=== PATIENT | female | born 1995 | race African-American/Black ===

== ENCOUNTER 2023-06-14 20:01 | Inpatient (IN) | payer OTHER ==
--- NOTE | 2023-06-14 20:57 | ED ---
Psych HPI - General Source: patient, police, RN notes reviewed, old records reviewed Mode of arrival: ambulatory Limitations: no limitations - History of Present Illness MD Complaint: suicidal ideation, feels depressed, altered mental status (Acute psychosis) -: hour(s) Associated Psychiatric Symptoms: racing thoughts, delusions Quality: constant Improves With: none Context: significant life stressor Associated Symptoms: denies other symptoms Treatments Prior to Arrival: placed on mental health hold <Rod Bobby - Last Filed: 06/14/23 23:22> <Raghav Aguilar - Last Filed: 06/20/23 08:18> - General Chief Complaint: Psychiatric Symptoms Stated Complaint: Mental Health Time Seen by Provider: 06/14/23 20:35 - History of Present Illness Initial Comments: This is a 28-year-old female DF today. Patient presents today for evaluation of altered mental status is petition for evaluation by the police department for psychiatric evaluation (Rod Bobby) - Related Data Home Medications Medication Instructions Recorded Confirmed No Known Home Medications 06/14/23 06/14/23 Allergies Allergy/AdvReac Type Severity Reaction Status Date / Time No Known Allergies Allergy Verified 06/14/23 21:03 Review of Systems ROS Other: All systems not noted in ROS Statement are negative. <Rod Bobby - Last Filed: 06/14/23 23:22> ROS Other: All systems not noted in ROS Statement are negative. <Raghav Aguilar - Last Filed: 06/20/23 08:18> ROS Statement: Those systems with pertinent positive or pertinent negative responses have been documented in the HPI. Past Medical History Past Medical History: No Reported History Past Surgical History: No Surgical Hx Reported Smoking Status: Never smoker Past Alcohol Use History: None Reported Past Drug Use History: None Reported <Rod Bobby - Last Filed: 06/14/23 23:22> General Exam Limitations: no limitations General appearance: alert, in no apparent distress Head exam: Present: atraumatic, normocephalic, normal inspection Eye exam: Present: normal appearance, PERRL, EOMI. Absent: scleral icterus, conjunctival injection, periorbital swelling ENT exam: Present: normal exam, mucous membranes moist Neck exam: Present: normal inspection. Absent: tenderness, meningismus, lymphadenopathy Respiratory exam: Present: normal lung sounds bilaterally. Absent: respiratory distress, wheezes, rales, rhonchi, stridor Cardiovascular Exam: Present: regular rate, normal rhythm, normal heart sounds. Absent: systolic murmur, diastolic murmur, rubs, gallop, clicks GI/Abdominal exam: Present: soft, normal bowel sounds. Absent: distended, tenderness, guarding, rebound, rigid Extremities exam: Present: normal inspection, full ROM, normal capillary refill. Absent: tenderness, pedal edema, joint swelling, calf tenderness Back exam: Present: normal inspection Neurological exam: Present: alert, oriented X3, CN II-XII intact Psychiatric exam: Present: normal affect, normal mood Skin exam: Present: warm, dry, intact, normal color. Absent: rash <Rod Bobby - Last Filed: 06/14/23 23:22> Course <Rod Bobby - Last Filed: 06/14/23 23:22> Vital Signs 06/14/23 06/15/23 20:04 03:44 Temperature 99.2 F 98.3 F Pulse Rate 116 H 77 Respiratory 18 16 Rate Blood Pressure 123/72 115/70 O2 Sat by Pulse 100 100 Oximetry - Reevaluation(s) Reevaluation #1: 06/14/23 23:23 medical record is reviewed (Rod Bobby) Reevaluation #2: 06/14/23 23:23 patient is medically clear for psychiatric evaluation (Rod Bobby) Medical Decision Making - Lab Data Result diagrams: 06/15/23 06:29 06/15/23 06:29 <Raghav Aguilar - Last Filed: 06/20/23 08:18> - Medical Decision Making Patient was evaluated by EPS and felt to require inpatient psychiatric care. She will be admitted to this institution. Was pt. sent in by a medical professional or institution (, PA, HEMATOLOGY TECHNICIAN, urgent care, hospital, or [facility]...) When possible be specific @ -No Did you speak to anyone other than the patient for history (EMS, parent, family, police, friend...)? What history was obtained from this source @ -No Did you review nursing and triage notes (agree or disagree)? Why? @ -I reviewed and agree with nursing and triage notes Were old charts reviewed (outside hosp., previous admission, EMS record, old EKG, old radiological studies, urgent care reports/EKG's, [facility] records)? Report findings @ -No old charts were reviewed Differential Diagnosis (chest pain, altered mental status, abdominal pain women, abdominal pain men, vaginal bleeding, weakness, fever, dyspnea, syncope, headache, dizziness, GI bleed, back pain, seizure, CVA, palpatations, mental health, musculoskeletal)? @ -Differential Mental Health Depression, anxiety, bipolar, psychosis, schizophrenia, borderline personality, situational depression, adjustment disorder, behavioral disorder, brain tumor, malingering, substance abuse, encephalopathy, medication reaction, dementia, hypothyroidism, degenerative neurologic disorder, lupus.... This is not meant to be all-inclusive list EKG interpreted by me (3pts min.). @ -As above X-rays interpreted by me (1pt min.). @ -None done CT interpreted by me (1pt min.). @ -None done U/S interpreted by me (1pt. min.). @ -None done What testing was considered but not performed or refused? (CT, X-rays, U/S, labs)? Why? @ -None What meds were considered but not given or refused? Why? @ -None Did you discuss the management of the patient with other professionals (prof keys i.e. , PA, HEMATOLOGY TECHNICIAN, lab, RT, psych nurse, social worker school, advanced solutions architect, teacher, workplace rehabilitation officer, home health care case manager)? Give summary @ -No Was smoking cessation discussed for >3mins.? @ -No Was critical care preformed (if so, how long)? @ -No Were there social determinants of health that impacted care today? How? (Homelessness, low income, unemployed, alcoholism, drug addiction, transportat ion, low edu. Level, literacy, decrease access to med. care, usp, rehab)? @ -No Was there de-escalation of care discussed even if they declined (Discuss DNR or withdrawal of care, Hospice)? DNR status @ -No What co-morbidities impacted this encounter? (DM, HTN, Smoking, COPD, CAD, Cancer, CVA, ARF, Chemo, Hep., AIDS, mental health diagnosis, sleep apnea, morbid obesity)? @ -None Was patient admitted / discharged? Hospital course, mention meds given and route, prescriptions, significant lab abnormalities, going to OR and other pertinent info. @ Patient was evaluated by EPS after being cleared by the previous physician. She was recommended inpatient. Undiagnosed new problem with uncertain prognosis? @ -No Drug Therapy requiring intensive monitoring for toxicity (Heparin, Nitro, Insulin, Cardizem)? @ -No Were any procedures done? @ -No Diagnosis/symptom? @ -Acute psychosis Acute, or Chronic, or Acute on Chronic? @ -default Uncomplicated (without systemic symptoms) or Complicated (systemic symptoms)? @ -default Side effects of treatment? @ -No Exacerbation, Progression, or Severe Exacerbation? @ -No Poses a threat to life or bodily function? How? (Chest pain, USA, GA, pneumonia, PE, COPD, DKA, ARF, appy, cholecystitis, CVA, Diverticulitis, Homicidal, Suicidal, threat to staff... and all critical care pts) @ -No (Raghav Aguilar) - Lab Data Lab Results 06/15/23 Range/Units 00:37 SARS-CoV-2 (PCR) Not Detected (Not Detectd) Disposition <Rod Bobby - Last Filed: 06/14/23 23:22> Is patient prescribed a controlled substance at d/c from ED?: No Time of Disposition: 00:26 <Raghav Aguilar - Last Filed: 06/20/23 08:18> Clinical Impression: Acute psychosis, Paranoid Disposition: ADMITTED IP TO THIS HOSP Condition: Stable
[2023-06-15] MEDS ORDERED: MAG HYDROX/AL HYDROX/SIMETH 30 ML CUP PO PRN (03:14)
[2023-06-15] MEDS ORDERED: MAGNESIUM HYDROXIDE 2,400 MG/30 ML CUP PO PRN (03:14)
[2023-06-15] MEDS ORDERED: hydrOXYzine HCL 50 MG/ML 1 ML VIAL IM PRN (03:14)
[2023-06-15] MEDS ORDERED: IBUPROFEN 600 MG TAB PO PRN (03:14)
[2023-06-15] MEDS ORDERED: ACETAMINOPHEN TAB 325 MG TAB PO PRN (03:14)
[2023-06-15] MEDS ORDERED: hydrOXYzine HCL 25 MG TAB PO PRN (03:14)
[2023-06-15] MEDS ORDERED: haloperidoL 5 MG TAB PO PRN (03:14)
[2023-06-15] MEDS ORDERED: HALOPERIDOL LACTATE 5 MG/ML 1 ML VIAL IM PRN (03:14)
[2023-06-15 07:09] LABS: Basophils # (A) 0.1 k/uL (0-0.2); Basophils % (A) 1 %; Eosinophils # (A) 0.2 k/uL (0-0.7); Eosinophils % (A) 3 %; HCT 39.1 % (34.0-46.0); HGB 12.1 gm/dL (11.4-16.0); Hypochromasia Slight; Lymphocytes # (A) 2.3 k/uL (1.0-4.8); Lymphocytes % (A) 29 %; MCH 23.7 pg (25.0-35.0); MCV 76.6 fL (80.0-100.0); Mean Platelet Volume 8.9; Monocytes # (A) 0.6 k/uL (0-1.0); Monocytes % (A) 8 %; Neutrophils # (A) 4.4 k/uL (1.3-7.7); Neutrophils % (A) 56 %; Platelet Count 202 k/uL (150-450); RBC 5.11 m/uL (3.80-5.40); RDW 14.1 % (11.5-15.5); WBC 7.9 k/uL (3.8-10.6)
[2023-06-15 11:20] LABS: Chol/HDL Ratio 3.28 Ratio; LDL Cholesterol,Calculated 108.9 mg/dL (0.0-131.0)
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
[2023-06-15 15:17] LABS: ALT 13 U/L (8-44); AST 14 U/L (13-35); Albumin 4.4 g/dL (3.8-4.9); Alkaline Phosphatase 40 U/L (41-126); Bilirubin, Conjugated <0.20 mg/dL (0.20-0.40); Blood Urea Nitrogen 10.1 mg/dL (9.0-27.0); Calcium 9.6 mg/dL (8.7-10.3); Carbon Dioxide 21.1 mmol/L (21.6-31.8); Chloride 106 mmol/L (96-109); Glucose 78 mg/dL (70-110); Sodium 142 mmol/L (135-145); Total Bilirubin 0.8 mg/dL (0.3-1.2); Total Protein 7.1 g/dL (6.2-8.2)
[2023-06-15] MEDS: PALIPERIDONE 3 MG TAB.ER.24 PO SCH (21:31)
--- NOTE | 2023-06-16 07:13 | P.MDCNMH ---
History of Present Illness H&P Date: 06/16/23 Chief Complaint: medical eval 28-year-old female coming in petitioned by police department for psych evaluation due to paranoid ideation and suicidal thoughts Patient currently denies any medical concerns she denies any fever, chills, cough, sore throat, chest pain , trouble breathing , nausea , vomiting, abd pain , changes in urinary or bowel habits. review of systems Pertinent positives as noted in HPI. All other systems were reviewed and are negative on exam Constitutional: No acute distress, conversant, pleasant Eyes: Anicteric sclerae, moist conjunctiva, Pupils equal round reactive to light Lungs: Clear to auscultation Clear to percussion Normal respiratory effort, no accessory muscle use Cardiovascular: Heart regular in rate and rhythm, No murmurs, gallops, or rubs No peripheral edema Abdominal: Soft Nontender, no guarding, rebound or rigidity Abdomen moving with respiration Normoactive bowel sounds Extremities: No digital cyanosis No clubbing Pedal pulses intact and symmetrical Radial pulses intact and symmetrical No calf tenderness Psychiatric: Alert and oriented to person, place and time Neuro Muscles Strength 5/5 in all 4 extremities Sensation to light touch grossly present throughout Cranial nerves II-XII grossly intact Past Medical History Past Medical History: No Reported History History of Any Multi-Drug Resistant Organisms: None Reported Past Surgical History: No Surgical Hx Reported Past Anesthesia/Blood Transfusion Reactions: No Reported Reaction Past Psychological History: No Psychological Hx Reported Smoking Status: Never smoker Past Alcohol Use History: None Reported Past Drug Use History: None Reported - Past Family History Father Family Medical History: Unable to Obtain Mother Family Medical History: Unable to Obtain Medications and Allergies Home Medications Medication Instructions Recorded Confirmed Type No Known Home Medications 06/14/23 06/14/23 History Allergies Allergy/AdvReac Type Severity Reaction Status Date / Time No Known Allergies Allergy Verified 06/14/23 21:03 Physical Exam Vitals: Vital Signs Pulse Resp BP 06/15/23 17:58 71 20 91/55 06/15/23 09:41 76 20 86/51 Cranial Nerve Examination - Cranial Nerves Cranial Nerve II- Optic: Intact Cranial Nerve III- Oculomotor: Intact Cranial Nerve IV- Trochlear: Intact Cranial Nerve V- Trigeminal: Intact Cranial Nerve - Abducens: Intact Cranial Nerve VII- Facial: Intact Cranial Nerve VIII- Auditory: Intact Cranial Nerve IX- Glossopharyngeal: Intact Cranial Nerve X- Vagus: Intact Cranial Nerve XI- Accessory: Intact Cranial Nerve XII- Hypoglossal: Intact Results CBC & Chem 7: 06/15/23 06:29 06/15/23 06:29 Labs: Abnormal Lab Results - Last 24 Hours (Table) 06/15/23 06/15/23 Range/Units 06:29 06:29 MCV 76.6 L (80.0-100.0) fL MCH 23.7 L (25.0-35.0) pg Carbon Dioxide 21.1 L (21.6-31.8) mmol/L Anion Gap 14.90 H (4.00-12.00) mmol/L Alkaline Phosphatase 40 L (41-126) U/L Assessment and Plan Assessment: suicidal ideation paranoid ideation management per psych labs reviewed unremarkable stable from medical stand point thank you for this consultation
[2023-06-16 07:36] VITALS: RESP 14
--- NOTE | 2023-06-16 10:07 | P.PN ---
Progress Note - Text Progress Note Date: 06/16/23 Interval History: Patient was seen laying down in her bed this morning. Patient just got out of the shower. Gas Usage Meter Clerk approached patient to interview today however patient did not want to leave her room. She continues to be fairly argumentative and vague, minimizing her need for hospitalization and treatment. She did not take the paliperidone last night. She wasn't coming to argue several different words and statements on the petition and also the certificate today to typewriter assembly and parts inspector. Gas Usage Meter Clerk attempted to speak with patient about the court process and the express clerk coming in to see her. Patient did not endorse any other complaints. She claims that she is "not paranoid". She states that she slept fairly last night, has been eating, not attending groups. At this time patient denies any suicidal or homical ideations, intent or plan. Patient denies any auditory, visual francia lucinations. Patient denies any side effects from the medications and has been compliant with meds. Mental Status Exam: General Appearance: Patient appears to be stated age, is alert, directable, and attempts to cooperate. Patient appears to have good hygiene and grooming. Dressed in a hospital gown, Curly hair. Behavior: Patient is seated without any agitated behavior. Paranoid/delusional argumentative Speech: Patient's speech is fluent and nonpressured. Vague, concrete Mood/Affect: Patient reports their mood is anxious, affect is congruent and constricted. Guarded Suicidality/Homicidality: Patient denies having any homicidal ideation intent or plan. Denies any suicidal ideations intent or plan Perceptions: Patient denies any visual hallucinations and denies any auditory hallucinations Evasive Though content/process: There is evidence of delusional thought content, stating Lucien is trying to date her, and speaking to her through song, and thought process is paranoid. Argumentative Memory and concentration: AOX3, grossly intact for the purposes of this session. Judgment and insight: poor IMPRESSIONS: Psychosis, unspecified PLAN: -Patient is admitted under involuntary status to MHU for stabilization of psychiatric symptoms and safety. Patient has not signed adult voluntary form and has not signed a medication consent and is placed in patient's chart. A second certification was completed and along with petition will be filed for court. -Medications : Invega 3mg qhs for psychosis. Patient is refusing medication -Ativan and Haldol PRN for agitation/aggression -NRT - nonsmoker -SW on board for discharge planning. Encourage patient to participate in groups to work on coping skills. Will await deferral and court date.
[2023-06-16] MEDS: PALIPERIDONE 3 MG TAB.ER.24 PO SCH ×2 (21:21→21:24)
--- NOTE | 2023-06-17 11:17 | P.PN ---
Progress Note - Text Progress Note Date: 06/17/23 Interval History: Patient was seen laying down in her bed this morning. she was milldly less irritable today with proposal writer. continues to have poor insight/judgment. contineus to refuse meds at this time. Patient claims that she met with the expeller worker yesterday and signed the deferral. She states that she was only agreeable to do outpatient treatment and claims that she still hesitant about medications. We spoke about possibly doing a demand for securing the patient continues to refuse medications. Patient states that she will try the medications however is requesting to have literature on the medication. Claims that she is sleeping fairly, has been isolating in her room. Continues to endorse some paranoia and suspiciousness, continues to be argumentative with proposal writer. She has not attending groups. At this time patient denies any suicidal or homical ideations, intent or plan. Patient denies any auditory, visual hallucinations. Patient denies any side effects from the medications and has been compliant with meds. Mental Status Exam: General Appearance: Patient appears to be stated age, is alert, directable, and attempts to cooperate. Patient appears to have good hygiene and grooming. Dressed in a hospital gown, Curly hair. Behavior: Patient is seated without any agitated behavior. Paranoid/delusional argumentative, improving mildly. Speech: Patient's speech is fluent and nonpressured. Vague, concrete Mood/Affect: Patient reports their mood is anxious, affect is congruent and constricted. Guarded Suicidality/Homicidality: Patient denies having any homicidal ideation intent or plan. Denies any suicidal ideations intent or plan Perceptions: Patient denies any visual hallucinations and denies any auditory hallucinations Evasive Though content/process: There is evidence of delusional thought content, and thought process is paranoid. mildly less Argumentative Memory and concentration: AOX3, grossly intact for the purposes of this session. Judgment and insight: poor IMPRESSIONS: Psychosis, unspecified PLAN: -Patient is admitted under involuntary status to [facility] for stabilization of psychiatric symptoms and safety. Patient has not signed adult voluntary form and has not signed a medication consent and is placed in patient's chart. -Medications : Invega 3mg qhs for psychosis. Patient is refusing medication -Ativan and Haldol PRN for agitation/aggression -NRT - nonsmoker -SW on board for discharge planning. Encourage patient to participate in groups to work on coping skills. patient deferred with expeller worker on 06/16.
[2023-06-17] MEDS: PALIPERIDONE 3 MG TAB.ER.24 PO SCH (20:44)
--- NOTE | 2023-06-18 11:05 | P.PN ---
Progress Note - Text Progress Note Date: 06/18/23 Interval History: Patient was seen laying down in her bed this morning. she was milldly less irr itable today with music writer. continues to have poor insight/judgment. She states that she took the medication last night. Claims it made her feel "more active" before going to bed. States that she is still feeling tired today from the medications. We spoke about the Risperdal which she seemed okay with. Claims that her mood and anxiety are fair. Claims that she had a dream about her brother coming after her to harm her. Continues to endorse paranoia at this time. She has not attending groups. At this time patient denies any suicidal or homical ideations, intent or plan. Patient denies any auditory, visual hallucinations. Patient denies any side effects from the medications and has been compliant with meds. Mental Status Exam: General Appearance: Patient appears to be stated age, is alert, directable, and attempts to cooperate. Patient appears to have good hygiene and grooming. Dressed in a hospital gown, Curly hair. Behavior: Patient is seated without any agitated behavior. Paranoid/delusional argumentative, improving mildly. Speech: Patient's speech is fluent and nonpressured. Vague, concrete Mood/Affect: Patient reports their mood is anxious, affect is congruent and cons tricted. Guarded Suicidality/Homicidality: Patient denies having any homicidal ideation intent or plan. Denies any suicidal ideations intent or plan Perceptions: Patient denies any visual hallucinations and denies any auditory hallucinations Evasive Though content/process: There is evidence of delusional thought content, and thought process is paranoid. mildly less Argumentative Memory and concentration: AOX3, grossly intact for the purposes of this session. Judgment and insight: poor IMPRESSIONS: Psychosis, unspecified PLAN: -Patient is admitted under involuntary status to [facility] for stabilization of psychiatric symptoms and safety. Patient has not signed adult voluntary form and has not signed a medication consent and is placed in patient's chart. -Medications : change Invega to risperdal 1 mg qhs for psychosis -Ativan and Haldol PRN for agitation/aggression -NRT - nonsmoker -SW on board for discharge planning. Encourage patient to participate in groups to work on coping skills. patient deferred with real estate associate attorney on 06/16.
[2023-06-18] MEDS: risperiDONE 1 MG TAB PO SCH (20:54)
--- NOTE | 2023-06-19 11:21 | P.PN ---
Progress Note - Text Progress Note Date: 06/19/23 Interval History: Patient was seen laying down in her bed this morning. she was agreeable to speak with administrative underwriter. She states that she took the medication last night. Claims that her mood and anxiety are "ok". Denies paranoia at this time. She has not attending groups, encouraged patient to attend/participate in groups. less argumentative today. Patient states that she slept better last night. Patient states at this time she feels more stable. Patient is not argumentative today. At this time patient denies any suicidal or homical ideations, intent or plan. Patient denies any auditory, visual hallucinations. Patient denies any side effects from the medications and has been compliant with meds. Mental Status Exam: General Appearance: Patient appears to be stated age, is alert, directable, and attempts to cooperate. Patient appears to have good hygiene and grooming. Dressed in a hospital gown, Curly hair. Behavior: Patient is seated without any agitated behavior. Speech: Patient's speech is fluent and nonpressured. Vague, concrete, improving Mood/Affect: Patient reports their mood is "ok", affect is congruent and constricted. Guarded, mildly improving Suicidality/Homicidality: Patient denies having any homicidal ideation intent or plan. Denies any suicidal ideations intent or plan Perceptions: Patient denies any visual hallucinations and denies any auditory hallucinations Evasive, improving Though content/process: There is no evidence of delusional thought content, and thought process is no longer paranoid. less Argumentative Memory and concentration: AOX3, grossly intact for the purposes of this session. Judgment and insight: poor, mildly improving IMPRESSIONS: Psychosis, unspecified PLAN: -Patient is admitted under involuntary status to [facility] for stabilization of psychiatric symptoms and safety. Patient has not signed adult voluntary form and has not signed a medication consent and is placed in patient's chart. -Medications : risperdal 1 mg qhs for psychosis -Ativan and Haldol PRN for agitation/aggression -NRT - nonsmoker -SW on board for discharge planning. Encourage patient to participate in groups to work on coping skills. patient deferred with mergers and acquisitions attorney on 06/16. likely discharge monday-
[2023-06-19] MEDS: risperiDONE 1 MG TAB PO SCH (21:11)
[2023-06-20 11:38] VITALS: BMI 17.6
--- NOTE | 2023-06-20 12:09 | P.PN ---
Progress Note - Text Progress Note Date: 06/20/23 Interval History: Patient was seen laying down in her bed this morning. she was agreeable to speak with comic writer. She states that she is being compliant with medication, and has no side effects. Claims that her mood and anxiety are better. Denies paranoia at this time. She has not attending groups, encouraged patient to attend/participate in groups, and get out of her room more often. She is going to meals, and going out to speak on the phone. Patient states she will get out of her room more. Patient states that she slept better last night. Patient is not argumentative today. Patient states that she talked to her intellectual property paralegal, and he has a couple choices for her to pick from to live in [place] upon discharge. At this time patient denies any suicidal or homical ideations, intent or plan. Patient denies any auditory, visual hallucinations. Patient denies any side effects from the medications and has been compliant with meds. Mental Status Exam: General Appearance: Patient appears to be stated age, is alert, directable, and attempts to cooperate. Patient appears to have good hygiene and grooming. Dressed in a pajamas, Curly hair. Behavior: Patient is seated without any agitated behavior. Speech: Patient's speech is fluent and nonpressured. Mood/Affect: Patient reports their mood is "better", affect is congruent improving Suicidality/Homicidality: Patient denies having any homicidal ideation intent or plan. Denies any suicidal ideations intent or plan Perceptions: Patient denies any visual hallucinations and denies any auditory hallucinations Though content/process: There is no evidence of delusional thought content, and thought process is no longer paranoid. more future oriented today Memory and concentration: AOX3, grossly intact for the purposes of this session. Judgment and insight: improving IMPRESSIONS: Psychosis, unspecified PLAN: -Patient is admitted under involuntary status to [facility] for stabilization of psychiatric symptoms and safety. Patient has not signed adult voluntary form and has not signed a medication consent and is placed in patient's chart. -Medications : risperdal 1 mg qhs for psychosis -Ativan and Haldol PRN for agitation/aggression -NRT - nonsmoker -SW on board for discharge planning. Encourage patient to participate in groups to work on coping skills. patient deferred with prosecuting attorney on 06/16. likely discharge monday if patient continues improving psychiatrically.
[2023-06-20] MEDS: risperiDONE 1 MG TAB PO SCH (20:00)
[2023-06-21 07:33] VITALS: BP 92/51; PULSE 79; TEMP 98.1
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
[2023-06-21] MEDS: risperiDONE 1 MG TAB PO SCH (20:11)
== END 2023-06-21 20:18 | disposition home or self-care (01) | DRG 885 ==
LOC: EC 20:01 → 3MHU 06-15 03:12
PROVIDERS: ADMIT Psychiatry & Neurology Psychiatry; ATTEND Psychiatry & Neurology Psychiatry
DX: F29 Unspecified psychosis not due to a substance or known physiological condition (principal); R45.851 Suicidal ideations; Z11.52 Encounter for screening for COVID-19; Z91.148 Patient's other noncompliance with medication regimen for other reason; Z71.51 Drug abuse counseling and surveillance of drug abuser; Z71.41 Alcohol abuse counseling and surveillance of alcoholic
CPT/HCPCS: 80053; 80061; 82075; 82248; 83036; 84443; 85025; 87635; 99285